=== PATIENT | female | born 1990 | race Hispanic/Latino ===

== ENCOUNTER 2017-09-27 09:36 | Day surgery (SDC) | payer BC ==
[2017-09-26 11:09] VITALS: BMI 22.6
[2017-09-27] MEDS ORDERED: Propofol 10 mg/ml Inj (20 ML) ONE ×3 (12:23→13:05)
[2017-09-27] MEDS ORDERED: Lidocaine Hydrochloride 10 ML INJ ONE (12:23)
[2017-09-27] MEDS ORDERED: Lactated Ringer's 1,000 ML IV SCH (12:30)
[2017-09-27] MEDS ORDERED: Simethicone 40 mg/0.6 ml Liquid (30 ml) ONE (12:57)
[2017-09-27 13:32] VITALS: TEMP 97.5; O2SAT 100
[2017-09-27 14:05] VITALS: BP 116/76; PULSE 67; RESP 12
== END 2017-09-27 14:15 | disposition home or self-care (01) ==
LOC: C.ENDO 09:36
PROVIDERS: ATTEND Internal Medicine Gastroenterology
DX: K64.0 First degree hemorrhoids (principal); R19.4 Change in bowel habit; R10.13 Epigastric pain; K57.30 Diverticulosis of large intestine without perforation or abscess without bleeding
CPT/HCPCS: 43239; 45380; 84703; 88305; 88313; 88342; J2704; J7120